=== PATIENT | female | born 1960 | race Caucasian/White ===

== ENCOUNTER 2016-09-16 10:02 | Emergency (ER) | payer MEDICAID, OTHER ==
[2016-09-16 10:13] VITALS: RESP 18; TEMP 97.8
--- NOTE | 2016-09-16 11:04 | C.PDOC ---
History Of Present Illness 56 yr old female presents to the ER with complaints of 1 month history of pain to bilateral buttock and around her waist. Patient states the pain is worse when she moves of stands, doesn't radiates to the legs. Patient reports she was seen by her PMD who prescribed her Naproxen and when she takes it the pain goes away but only takes it sometimes. Patient states she also had some blood work done, unaware of the results. Patient denies fever, nausea, vomiting, abdominal pain, diarrhea, weakness or numbness. Time Seen by Provider: 09/16/16 11:00 Chief Complaint (Nursing): Back Pain History Per: Patient History/Exam Limitations: no limitations Onset/Duration Of Symptoms: Persistent (1 month) Current Symptoms Are (Timing): Still Present Past Medical History Reviewed: Historical Data, Nursing Documentation, Vital Signs Vital Signs: Last Vital Signs Temp 97.8 F 09/16/16 10:12 Pulse 92 H 09/16/16 10:12 Resp 18 09/16/16 10:12 BP 146/75 09/16/16 10:12 Pulse Ox 99 09/16/16 13:29 - Medical History PMH: Arthritis, Asthma - [facility] Procedures INJECT/INFUSE NEC (09/02/13) Family History: States: No Known Family Hx - Social History Hx Alcohol Use: No Hx Substance Use: No - Immunization History Hx Tetanus Toxoid Vaccination: Yes Hx Influenza Vaccination: Yes Hx Pneumococcal Vaccination: No Review Of Systems Except As Marked, All Systems Reviewed And Found Negative. Constitutional: Negative for: Fever Gastrointestinal: Negative for: Nausea, Vomiting, Abdominal Pain, Diarrhea Musculoskeletal: Positive for: Other ((+) Bilateral buttock pain ) Neurological: Negative for: Weakness, Numbness Physical Exam - Physical Exam Appears: Non-toxic, No Acute Distress Skin: Warm, Dry, Rash Head: Atraumatic, Normacephalic Oral Mucosa: Moist Chest: Symmetrical, No Tenderness Cardiovascular: Rhythm Regular, No Murmur Respiratory: Normal Breath Sounds, No Rales, No Rhonchi, No Stridor, No Wheezing Gastrointestinal/Abdominal: Normal Exam, Soft, No Tenderness, No Guarding, No Rebound Back: No Muscle Spasm, Straight Leg Raising (pain with striaght leg raise on the left ), Other ((+) Left para L1-L2 tenderness ) Extremity: Normal ROM, No Swelling Neurological/Psych: Oriented x3, Normal Speech, Normal Motor ED Course And Treatment O2 Sat by Pulse Oximetry: 99 - Other Rad X-Ray - LS Spine X-Ray: Viewed By Me, Read By Radiologist Interpretation: PROCEDURE: Radiographs of the Lumbar Spine. HISTORY: back pain. COMPARISON: No prior. FINDINGS: BONES: There is a mid few mm anterior subluxation of L4 relative to L5 - this may be due to ligamentous laxity given the L4-5 facet hypertrophic arthrosis suggested. . No fracture. DISC SPACES: L5-S1 posterior disc space narrowing suggested. OTHER FINDINGS: None. 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 with minimal anterior subluxation of L4 relative to L5 probably due to ligamentous laxity associated with facet arthrosis Medical Decision Making Medical Decision Making: PLAN: * X-Ray - LS Spine * Toradol IM Pt feeling better post meds Results discussed, pt urged to take the naprosyn three times a day Follow up with PCP Disposition Counseled Patient/Family Regarding: Diagnosis, Need For Followup - Disposition Disposition: Trans to Other Acute Care [facility] Disposition Time: 13:43 Condition: GOOD Additional Instructions: Continue Naprosyn three times a day If it upsets your stomach add pepcid twice a day Follow up with your PCP Instructions: Acute Low Back Pain (ED) - Clinical Impression Clinical Impression: Low back pain, Spondylolysis - Scribe Statement The provider has reviewed the documentation as recorded by the Ellen Posada Provider Attestation: All medical record entries made by the Ellen were at my direction and personally dictated by me. I have reviewed the chart and agree that the record accurately reflects my personal performance of the history, physical exam, medical decision making, and the department course for this patient. I have also personally directed, reviewed, and agree with the discharge instructions and disposition.
--- NOTE | 2016-09-16 13:18 | RAD ---
PROCEDURE: Radiographs of the Lumbar Spine. HISTORY: back pain COMPARISON: No prior. FINDINGS: BONES: There is a mid few mm anterior subluxation of L4 relative to L5 - this may be due to ligamentous laxity given the L4-5 facet hypertrophic arthrosis suggested. . No fracture. DISC SPACES: L5-S1 posterior disc space narrowing suggested OTHER FINDINGS: None. 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 with minimal anterior subluxation of L4 relative to L5 probably due to ligamentous laxity associated with facet arthrosis
[2016-09-16 13:49] VITALS: BP 138/76; PULSE 75; O2SAT 98
== END 2016-09-16 13:49 | disposition home or self-care (01) ==
LOC: C.ER 10:02
DX: M54.5 Low back pain (principal); M43.06 Spondylolysis, lumbar region
CPT/HCPCS: 72100; 96372; 99283; J1885

== ENCOUNTER 2017-02-11 18:21 | Emergency (ER) | payer MEDICAID, OTHER ==
[2017-02-11 18:28] VITALS: BP 119/75; RESP 18; TEMP 97.5; BMI 28.3
--- NOTE | 2017-02-11 18:40 | C.PDOC ---
History Of Present Illness 56 year old female presents to the ED with complaints of pain to the left pinky toe after stubbing her toe one week ago on a door while walking bare foot. Patient states she has been taking over the counter pain medications and soaking her foot in Epsom Salt with minimal relief. She denies weakness or numbness. Time Seen by Provider: 02/11/17 18:32 Chief Complaint (Nursing): Lower Extremity Problem/Injury History Per: Patient History/Exam Limitations: no limitations Onset/Duration Of Symptoms: Days (1 week ) Current Symptoms Are (Timing): Still Present Recent travel outside of the [place]: No - Ankle/Foot Description Of Injury: Struck Against Object (door) Alleviating Factor(s): OTC Pain Medication, Other (epsom salt soaking) Past Medical History Reviewed: Historical Data, Nursing Documentation, Vital Signs Vital Signs: Last Vital Signs Temp 97.5 F L 02/11/17 18:27 Pulse 89 02/11/17 19:08 Resp 18 02/11/17 19:08 BP 119/75 02/11/17 18:27 Pulse Ox 98 02/11/17 19:20 - Medical History PMH: Arthritis, Asthma - [facility] Procedures INJECT/INFUSE NEC (09/02/13) Family History: States: Unknown Family Hx - Social History Hx Alcohol Use: No Hx Substance Use: No - Immunization History Hx Tetanus Toxoid Vaccination: Yes Hx Influenza Vaccination: Yes Hx Pneumococcal Vaccination: No Review Of Systems Constitutional: Negative for: Fever, Chills Musculoskeletal: Positive for: Foot Pain (left pinky toe pain ). Negative for: Leg Pain Neurological: Negative for: Weakness, Numbness Physical Exam - Physical Exam Appears: Non-toxic, No Acute Distress Skin: Warm, Dry, No Ecchymosis Head: Atraumatic, Normacephalic Eye(s): bilateral: Normal Inspection Neck: Supple Chest: Symmetrical Extremity: Normal ROM, Tenderness (mild tenderness to left 5th toe ), No Calf Tenderness, Capillary Refill (good capillary refill, less than two seconds ), No Deformity, Swelling (mild swelling to left 5th toe ) Pulses: Left Dorsalis Pedis: Normal, Right Dorsalis Pedis: Normal Neurological/Psych: Oriented x3, Normal Speech, Normal Sensation Gait: Steady ED Course And Treatment O2 Sat by Pulse Oximetry: 98 (room air ) - Other Rad Left Foot X-Ray X-Ray: Interpreted by Me, Viewed By Me Interpretation: Fracture of the left 5th toe. Progress Note: X-Ray of the left foot was taken. Reevaluation Time: 18:45 (Joss tape applied to toes along with cast shoe. Patient given instructions on rest and analgesics. Instruct to follow up with podiatry. ) Medical Decision Making Medical Decision Making: Impression: Left foot injury Plan: Xray of foot Progress: XRay reviewed by me showing normal foot, no fracture Patient advise to rest and take NSAID for any pain. Disposition Counseled Patient/Family Regarding: Diagnosis, Need For Followup, Rx Given - Disposition Referrals: Clinic,Med Surg [Primary Care Provider] - Podiatry Clinic [Outside] Disposition: HOME/ ROUTINE Disposition Time: 18:59 Condition: STABLE Additional Instructions: Your xray shows a fracture. 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 - Scribe Statement The provider has reviewed the documentation as recorded by the Scribflory Payne All medical record entries made by the Ellen were at my direction and personally dictated by me. I have reviewed the chart and agree that the record accurately reflects my personal performance of the history, physical exam, medical decision making, and the department course for this patient. I have also personally directed, reviewed, and agree with the discharge instructions and disposition.
[2017-02-11 19:08] VITALS: PULSE 89
[2017-02-11 19:12] VITALS: O2SAT 98
--- NOTE | 2017-02-12 09:10 | RAD ---
PROCEDURE: Radiographs of the left foot INDICATION: COMPARISON: None. FINDINGS: There is an acute oblique nondisplaced fracture in the midshaft of the proximal phalanx of the 5th digit with overlying soft tissue swelling. Bone alignment and mineralization are normal. The joint spaces are preserved. There is no radiopaque foreign body. IMPRESSION: Acute oblique nondisplaced fracture in the midshaft of the proximal phalanx of the 5th digit with overlying soft tissue swelling.
== END 2017-02-11 19:09 | disposition home or self-care (01) ==
LOC: C.ER 18:21 → SUPCPDRO 18:21 → C.ER 19:09
DX: S92.515A Nondisplaced fracture of proximal phalanx of left lesser toe(s), initial encounter for closed fracture (principal); W22.8XXA Striking against or struck by other objects, initial encounter